=== PATIENT | female | born 1995 | race Two or more races ===

== ENCOUNTER → 2024-09-01 | Emergency (ER) | payer OTHER ==
[~2024-09-01] VITALS: Ht 170.2 cm; Wt 65.3 kg
[~2024-09-01] MED LIST: CLONAZEPAM0.5 MG PO; hydrOXYzine PAMOATE 25 MG CAPSULE PO ONE; hydrOXYzine PAMOATE 25 MG CAPSULE PO STA
[2024-09-01 23:32] LABS: HEMOGLOBIN 12.8 g/dL (12.0-15.00); MEAN CELL VOLUME 79.7 fL (80.00-100.00); MEAN CORPUSCULAR HEMOGLOBIN 26.3 pg (27.00-32.0); MEAN CORPUSCULAR HGB CONC 32.9 g/dl (32.0-36.0); PLATELET COUNT 253 K/uL (150-450); RED BLOOD COUNT 4.89 M/uL (4.00-6.00); RED CELL DISTRIBUTION WIDTH 14.1 % (11.5-14.5)
[2024-09-01 23:56] LABS: CALCIUM 9.7 mg/dL (8.5-10.1); CREATININE SERUM 0.99 mg/dL (0.55-1.02); GFR 67.28; POTASSIUM 3.71 mEq/L (3.5-5.1)
== END | disposition home or self-care (01) ==
LOC: ER 21:16
PROVIDERS: General Practice
DX: F41.0 Panic disorder [episodic paroxysmal anxiety] (principal)